=== PATIENT | male | born 1955 | race African-American/Black ===

== ENCOUNTER 2016-12-06 13:32 | Day surgery (SDC) | payer OTHER ==
[~2016-12-06] VITALS: Ht 177.8 cm; Wt 83.0 kg
[2016-12-06] VITALS (9 sets, daily range): BP systolic 138–159; BP diastolic 72–106; PULSE 48–90; RESP 15–26; Ht 177.8 cm; Wt 83.0 kg
[2016-12-06] MEDS ORDERED: LISI1TAB8 PO (14:32)
--- NOTE | 2016-12-06 16:09 | HPN ---
Date/Time of Note Date/Time of Note DATE: 12/06/16 TIME: 16:09 Interval H&P Admission Note Pt. seen H&P reviewed: No system changes TAY RADER Dec 06, 2016 16:09
[2016-12-06] MEDS ORDERED: BUPIVACAINE 0.5% (SDV) 30 ML INJ ONE (17:21)
[2016-12-06] MEDS ORDERED: FENTAnyl 50 MCG/ML VIAL ONE (17:24)
[2016-12-06] MEDS ORDERED: CEFAZOLIN 1 GM INJ ONE (17:24)
[2016-12-06] MEDS ORDERED: MIDAZOLAM 1 MG/ML 2 ML INJ ONE (17:24)
[2016-12-06] MEDS ORDERED: PROPOFOL 20 ML ONE (17:24)
[2016-12-06] MEDS ORDERED: PHENYLephrine (100 MCG/ML) 5ML SYG ONE (17:45)
[2016-12-06] MEDS ORDERED: DEXAMETHASONE 4 MG/ML 1 ML INJ ONE (18:17)
[2016-12-06] MEDS ORDERED: ACETAMINOPHEN 1000MG/100ML IV 100 ML ONE (18:17)
[2016-12-06] MEDS ORDERED: ONDANSETRON 4 MG INJ ONE (18:17)
[2016-12-06] MEDS ORDERED: METOCLOPRAMIDE 10 MG INJ ONE (18:17)
[2016-12-06] MEDS ORDERED: KETOROLAC 30 MG INJ ONE (18:17)
[2016-12-06] MEDS ORDERED: FAMOTIDINE 20 MG INJ ONE (18:33)
--- NOTE | 2016-12-06 18:48 | OPPN ---
Date/Time of Note Date/Time of Note DATE: 12/06/16 TIME: 18:47 Operative Report Preoperative Diagnosis compression of ulnar nerve at Guyon's canal Postoperative Diagnosis compression of ulnar nerve at Guyon's canal Operation/Procedure Performed decompression of ulnar nerve at Guyon's canal Provider: TAY RADER Anesthesia Type: general, other Estimated blood loss: 0 - 10 ml's Transfusion Required: no Specimen: none Grafts/Implants: none Complications: no TAY RADER Dec 06, 2016 18:48
[2016-12-06] MEDS ORDERED: EPHEDrine SULFATE 50 MG/5 ML SYG IV PRN (19:00)
[2016-12-06] MEDS ORDERED: OXYCODONE/ACETAMINOPHEN (5/325) TAB PO PRN ×2 (19:00)
[2016-12-06] MEDS ORDERED: METOCLOPRAMIDE 10 MG INJ IV PRN (19:00)
[2016-12-06] MEDS ORDERED: HYDROmorphONE (0.2 MG/ML) 10ML SYG IV PRN ×3 (19:00)
[2016-12-06] MEDS ORDERED: MEPERIDINE 25 MG INJ IV PRN (19:00)
[2016-12-06] MEDS ORDERED: ONDANSETRON 4 MG INJ IV PRN (19:00)
[2016-12-06] MEDS ORDERED: DIPHENHYDRAMINE 50 MG INJ IV PRN (19:00)
[2016-12-06] MEDS ORDERED: hydrALAzine 20 MG INJ IV PRN (19:00)
[2016-12-06] MEDS ORDERED: LABETALOL HCL 20MG INJ IV PRN (19:00)
[2016-12-06] MEDS ORDERED: FENTAnyl 50 MCG/ML VIAL IV PRN ×3 (19:00)
[2016-12-06] MEDS ORDERED: HYDROCODONE/APAP (5/325) TAB PO PRN (21:30)
--- NOTE | 2016-12-06 22:20 | OPR ---
DATE OF OPERATION: 12/06/2016 SURGEON: Jeff Scherer MD ANESTHESIA: General plus local. 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 OPERATION PERFORMED: Decompression of left ulnar nerve at Guyon's canal. OPERATIVE FINDINGS AT SURGERY: Compression of the ulnar nerve at the wrist. INDICATION: This is a 61-year-old male with longstanding left hand pain and numbness. He was getting weakness, and electrodiagnostic study showed compression of the ulnar nerve at Guyon's canal. MRI did not indicate mass effect, but patient had persistent symptoms and elected to proceed with surgical intervention, understanding the risks and benefits. OPERATIVE PROCEDURE: Patient was seen in the preoperative area, and all further questions were answered. Again, he gave informed consent, understanding the risks and benefits. He was taken to the operative suite and placed in the supine position. He was placed under general anesthesia, and tourniquet placed on left upper extremity. Left upper extremity was prepped with ChloraPrep stick and draped in the usual sterile fashion, and 2 g Ancef IV was given. Esmarch bandage was used to exsanguinate the extremity, and tourniquet inflated to 250 mmHg. A zigzag incision across the ulnar volar wrist was utilized with sharp dissection, carried down through skin and subcutaneous tissue. The ulnar nerve was 1st identified proximally and was followed distally. The ulnar artery was irregular and had multiple branches crossing the ulnar nerve, causing compression proximal to the wrist crease, as well as distal to the wrist crease. I gently dissected the ulnar artery off of the ulnar nerve and followed the nerve distally to its sensory branches, as well as its motor branch, dividing all fascia overlying the ulnar nerve. The pisohamate ligament was identified, as was the hypothenar fascia, and any firm fibrous bands were divided overlying the ulnar nerve. The pisohamate ligament was divided in order to provide more space for the motor branch of the ulnar nerve. I followed the nerve as distally as possible, providing adequate space for the nerve throughout its course. Wound was copiously irrigated. Skin closed with 4-0 nylon. Xeroform placed over the wound, followed by sterile gauze, Webril, and a short-arm splint. Tourniquet was deflated after 52 minutes, and patient was awakened from anesthesia. He was taken to the postoperative suite in stable condition and tolerated the procedure well, without complication. Fingers were pink, warm, and well perfused after tourniquet was deflated. SPECIMENS: None. ESTIMATED BLOOD LOSS: 5 cc. SPONGE, INSTRUMENT, AND NEEDLE COUNTS: Correct. TOURNIQUET TIME: 52 minutes. CONDITION ON DISCHARGE: Stable. Dictated By: Jeff Scherer MD /indio/cassie /Document#: [id number] RAINA
== END 2016-12-06 20:00 | disposition home or self-care (01) ==
LOC: SDS 13:32
PROVIDERS: ATTEND Orthopaedic Surgery Hand Surgery
DX: G56.22 Lesion of ulnar nerve, left upper limb (principal); I10 Essential (primary) hypertension
CPT/HCPCS: 64719; J0131; J0690; J1100; J1885; J2250; J2370; J2405; J2765; J3010